=== PATIENT | male | born 1970 | race Caucasian/White ===

== ENCOUNTER 2017-03-27 10:13 | Emergency (ER) | payer OTHER, BC ==
--- NOTE | 2017-03-27 10:32 | EDM.PDOC ---
ED HPI GENERAL MEDICAL PROBLEM - General Chief Complaint: Upper Extremity Injury/Pain Stated Complaint: BACK PAIN Time Seen by Provider: 03/27/17 10:17 Source of Information: Reports: Patient History Limitations: Reports: No Limitations - History of Present Illness INITIAL COMMENTS - FREE TEXT/NARRATIVE: HISTORY AND PHYSICAL: History of present illness: Patient is a 46-year-old male who presents to the emergency room today with complaints of right posterior rib pain. 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 Patient reports that it is painful with movement, coughing, deep breathing and it radiates from the posterior mid chest wall to the anterior axilla area. Denies hitting his head or any loss of consciousness. Denies any hemoptysis, chest pain, short of breath , fever or chills. Denies any previous injury to the chest wall. Patient denies any other health problems or concerns today. Review of systems: As per history of present illness and below otherwise all systems reviewed and negative. Past medical history: As per history of present illness and as reviewed below otherwise noncontributory. Surgical history: As per history of present illness and as reviewed below otherwise noncontributory. Social history: No reported history of drug or alcohol abuse. Family history: As per history of present illness and as reviewed below otherwise noncontributory. Physical exam: Gen.: Nontoxic-appearing 46-year-old male. Able to speak in full sentences without shortness of breath. Alert and oriented HEENT: Atraumatic, normocephalic, pupils reactive, negative for conjunctival pallor or scleral icterus, mucous membranes moist, throat clear, neck supple, nontender, trachea midline. C-spine and back were palpated with no tenderness, crepitus, step-offs or obvious deformities. Lungs: Clear to auscultation, breath sounds equal bilaterally, tenderness to the right posterior chest wall. Heart: S1S2, regular rate and rhythm Abdomen: Soft, obese, nondistended, nontender. Negative for masses. Negative for costovertebral tenderness. Pelvis: Stable nontender. Genitourinary: Deferred. Rectal: Deferred. Extremities: Atraumatic, moves all per self, negative for cords or calf pain. Neurovascular unremarkable. Neuro: Awake, alert, oriented. Cranial nerves II through XII unremarkable. Cerebellum unremarkable. Motor and sensory unremarkable throughout. Exam nonfocal. Diagnostics: Chest x-ray Therapeutics: Toradol IM Impression: Contusion Plan: 1. May take your Cataflam 1 tab 3 times a day as needed for pain. Disp #30. Please do not take any additional NSAIDs such as ibuprofen or Aleve while taking this medication. The Flexeril as a muscle relaxer you may take this at night or while at home (not needing to be functioning at work or driving). Disp # 10. Ice to the area for the next 24 hours. He may then apply heat for pain management. 2. Follow-up with your primary care provider in the next 1-2 days. Return to the ED as needed as discussed Definitive disposition and diagnosis as appropriate pending reevaluation and review of above. Onset Date: 03/26/17 Duration: Day(s): Location: Reports: Chest Quality: Reports: Sharp Improves with: Reports: None Worsens with: Reports: Movement Associated Symptoms: Reports: No Other Symptoms right rib area Pain Score (Numeric/FACES): 8 - Related Data Allergies Allergy/AdvReac Type Severity Reaction Status Date / Time adhesive Allergy Rash Verified 03/27/17 10:23 Latex, Natural Rubber Allergy Rash Verified 03/27/17 10:23 penicillin Allergy Rash Verified 03/27/17 10:23 Home Meds: Home Meds Fluticasone Propionate [Flonase Allergy Relief] 1 spray NASBOTH ASDIRECTED 03/27 [History] Past Medical History - Past Health History Medical/Surgical History: Denies Medical/Surgical History Social & Family History - Tobacco Use Smoking Status *Q: Never Smoker - Recreational Drug Use Recreational Drug Use: No Review of Systems - Review of Systems Review Of Systems: ROS reveals no pertinent complaints other than HPI. ED EXAM, GENERAL - Physical Exam Exam: See Below (See dictation) Course - Vital Signs Last Recorded V/S: Last Vital Signs Temp 36.2 C 03/27/17 10:25 Pulse 78 03/27/17 10:25 Resp 18 03/27/17 10:25 BP 116/73 03/27/17 10:25 Pulse Ox 95 03/27/17 10:25 - Orders/Labs/Meds Orders: Active Orders 24 hr Category Date Time Status Chest 2V [CR] Stat Exams 03/27/17 10:33 Taken Meds: Medications Discontinued Medications Generic Name Dose Route Start Last Admin Trade Name Wu PRN Reason Stop Dose Admin Ketorolac Tromethamine 60 mg 03/27/17 10:33 03/27/17 10:37 Toradol IM 03/27/17 10:34 60 mg ONETIME ONE Administration Departure - Departure Time of Disposition: 11:11 Disposition: Home, Self-Care 01 Condition: Good Clinical Impression: Rib contusion Qualifiers: Encounter type: initial encounter Laterality: right Qualified Code(s): S20.211A - Contusion of right front wall of thorax, initial encounter - Discharge Information Referrals: PCP,None [Primary Care Provider] - Forms: ED Department Discharge Additional Instructions: My general discharge The following information is given to patients seen in the emergency department who are being discharged to home. This information is to outline your options for follow-up care. We provide all patients seen in our emergency department with a follow-up referral. The need for follow-up, as well as the timing and circumstances, are variable depending upon the specifics of your emergency department visit. If you don't have a primary care physician on staff, we will provide you with a referral. We always advise you to contact your personal physician following an emergency department visit to inform them of the circumstance of the visit and for follow-up with them and/or the need for any referrals to a consulting specialist. The emergency department will also refer you to a specialist when appropriate. This referral assures that you have the opportunity for follow-up care with a specialist. All of these measure are taken in an effort to provide you with optimal care, which includes your follow-up. Under all circumstances we always encourage you to contact your private physician who remains a resource for coordinating your care. When calling for follow-up care, please make the office aware that this follow-up is from your recent emergency room visit. If for any reason you are refused follow-up, please contact the [facility] Emergency Department at and asked to speak to the emergency department charge nurse. [facility] [address] [place] [phone] 1. May take your Cataflam 1 tab 3 times a day as needed for pain. Disp #30. Please do not take any additional NSAIDs such as ibuprofen or Aleve while taking this medication. You may take Tylenol for breakthrough pain. The Flexeril as a muscle relaxer you may take this at night or while at home (when you're not needing to be functioning at work or driving). Disp # 10. Ice to the area for the next 24 hours. He may then apply heat for pain management. 2. Follow-up with your primary care provider in the next 1-2 days. Return to the ED as needed as discussed - My Orders Last 24 Hours: My Active Orders 03/27/17 10:33 Chest 2V [CR] Stat - Assessment/Plan Last 24 Hours: My Active Orders 03/27/17 10:33 Chest 2V [CR] Stat
[2017-03-27] MEDS ORDERED: Ketorolac 60 MG/2 ML SDV IM ONE (10:33)
[2017-03-27 11:25] VITALS: BP 119/74
--- NOTE | 2017-03-29 17:22 | CR ---
EXAM DATE: 03/27/17 PATIENT'S AGE: 46 Patient: TAM ZAMBRANO Facility: [place], [place] Site . Site : 1970 Study: XRay Chest [id number]/23/2017 10:52:44 AM Ordering Physician: Doctor Joya Final Report: INDICATION: Hit last night playing football and now having pain in right ribs. Technique: PA and lateral chest x-ray. Comparison: Chest x-ray 03/22/2009. Findings: Decreased height of a few thoracic vertebral bodies likely chronic. Heart size normal. Lungs clear without infiltrate. No obvious rib fractures. If suspicion for rib fracture is moderate to high, consider dedicated rib views with markers over the site of pain to the allow for more sensitivity for evaluation of rib abnormality/fracture. Remainder negative. Dictated by Kristopher Choudhury MD @ Mar 27 2017 10:56AM (Electronic Signature) Report Signed by Proxy. YESSY
== END 2017-03-27 11:24 | disposition home or self-care (01) ==
LOC: MW.ED 10:13
DX: S20.211A Contusion of right front wall of thorax, initial encounter (principal); Z88.0 Allergy status to penicillin; Z91.040 Latex allergy status; W51.XXXA Accidental striking against or bumped into by another person, initial encounter; Y93.61 Activity, american tackle football
CPT/HCPCS: 71020; 96372; 99283; J1885

== ENCOUNTER 2019-02-18 15:11 | Emergency (ER) | payer BC, OTHER ==
[2019-02-18] MEDS ORDERED: methylPREDNISolone Sodium Succinate 125 MG/2 ML SDV IV ONE (15:45)
--- NOTE | 2019-02-18 15:46 | EDM.PDOC ---
ED HPI GENERAL MEDICAL PROBLEM - General Chief Complaint: Skin Complaint Stated Complaint: BUG BITE Time Seen by Provider: 02/18/19 15:42 Source of Information: Reports: Patient History Limitations: Reports: No Limitations - History of Present Illness INITIAL COMMENTS - FREE TEXT/NARRATIVE: HISTORY AND PHYSICAL: History of present illness: Patient is a 48-year-old male presents to the ED with complaint possible bug bite. Patient states he thinks he was bit by a wasp yesterday about 24 hours ago. He states that over night he developed swelling in the left side of his neck that has progressively gotten worse and spreading to the front of his neck. He denies any difficulty breathing or swallowing, denies fevers or chills. Review of systems: As per history of present illness and below otherwise all systems reviewed and negative. Past medical history: As per history of present illness and as reviewed below otherwise noncontributory. Surgical history: As per history of present illness and as reviewed below otherwise noncontributory. Social history: No reported history of drug or alcohol abuse. Family history: As per history of present illness and as reviewed below otherwise noncontributory. Physical exam: General: Patient sitting comfortably in no acute distress and nontoxic appearing HEENT: There is a moderate amount of swelling to the left and anterior neck with erythema and warmth. Atraumatic, normocephalic, pupils reactive, negative for conjunctival pallor or scleral icterus, mucous membranes moist, throat clear , neck supple, nontender, trachea midline. No meningeal signs. Lungs: Clear to auscultation, breath sounds equal bilaterally, chest nontender. Heart: S1S2, regular, negative for clicks, rubs, or overt murmur. Abdomen: Soft, nondistended, nontender. Negative for masses or hepatosplenomegaly. Negative for costovertebral tenderness. No rigidity, rebound , guarding. Pelvis: Stable nontender. Genitourinary: Deferred. Rectal: Deferred. Extremities: Atraumatic, negative for cords or calf pain. Neurovascular unremarkable. Neuro: Awake, alert, oriented. Cranial nerves II through XII unremarkable. Cerebellum unremarkable. Motor and sensory unremarkable throughout. Exam nonfocal. Notes: Diagnostics: CBC, CMP, lactate, CT soft tissue neck contrast Therapeutics: Solumedrol 125mg IV 1g Rocephin IV Prescriptions: Keflex Impression: Cellulitis, local allergic reaction Plan: Take antibiotic as instructed. Take Benadryl every 6 hours until symptoms resolve. Follow up with primary care provider Return to ED as needed as discussed Definitive disposition and diagnosis as appropriate pending reevaluation and review of above. Left Neck Pain Score (Numeric/FACES): 4 - Related Data Allergies Allergy/AdvReac Type Severity Reaction Status Date / Time adhesive Allergy Rash Verified 02/18/19 15:36 Latex, Natural Rubber Allergy Rash Verified 02/18/19 15:36 penicillin Allergy Rash Verified 02/18/19 15:36 Home Meds: Home Meds Cephalexin [Keflex] 500 mg PO TID 10 Days #30 capsule 02/18/19 [Rx] Fexofenadine [Simona] 180 mg PO DAILY 02/18/19 [History] Non-Formulary Medication [NF Drug] 1 each INH ASDIRECTED 02/18/19 [History] Non-Formulary Medication [NF Drug] 1 each PO DAILY 02/18/19 [History] Past Medical History - Past Health History Medical/Surgical History: Denies Medical/Surgical History HEENT History: Reports: None Cardiovascular History: Reports: None Respiratory History: Reports: Asthma Gastrointestinal History: Reports: None Genitourinary History: Reports: None Musculoskeletal History: Reports: None Neurological History: Reports: None Psychiatric History: Reports: None Endocrine/Metabolic History: Reports: None Hematologic History: Reports: None Immunologic History: Reports: None Oncologic (Cancer) History: Reports: None Dermatologic History: Reports: None - Infectious Disease History Infectious Disease History: Reports: None - Past Surgical History GI Surgical History: Reports: Appendectomy Social & Family History - Family History Family Medical History: Noncontributory - Caffeine Use Caffeine Use: Reports: Soda ED ROS GENERAL - Review of Systems Review Of Systems: ROS reveals no pertinent complaints other than HPI. ED EXAM, SKIN/RASH Exam: See Below (see dictation) Course - Vital Signs Last Recorded V/S: Last Vital Signs Temp 96.0 F 02/18/19 18:14 Pulse 66 02/18/19 18:14 Resp 17 02/18/19 18:14 BP 140/69 02/18/19 18:14 Pulse Ox 96 02/18/19 18:14 - Orders/Labs/Meds Labs: Laboratory Tests 02/18/19 02/18/19 02/18/19 Range/Units 16:00 16:00 16:00 WBC 8.12 (4.0-11.0) K/uL RBC 5.21 (4.50-5.90) M/uL Hgb 15.3 (13.0-17.0) g/dL Hct 44.7 (38.0-50.0) % MCV 85.8 (80.0-98.0) fL MCH 29.4 (27.0-32.0) pg MCHC 34.2 (31.0-37.0) g/dL RDW Std Deviation 42.1 (28.0-62.0) fl RDW Coeff of Pelon 14 (11.0-15.0) % Plt Count 170 (150-400) K/uL MPV 10.90 (7.40-12.00) fL Neut % (Auto) 60.8 (48.0-80.0) % Lymph % (Auto) 24.6 (16.0-40.0) % [place] % (Auto) 11.5 (0.0-15.0) % Eos % (Auto) 2.6 (0.0-7.0) % Baso % (Auto) 0.5 (0.0-1.5) % Neut # (Auto) 4.9 (1.4-5.7) K/uL Lymph # (Auto) 2.0 (0.6-2.4) K/uL [place] # (Auto) 0.9 H (0.0-0.8) K/uL Eos # (Auto) 0.2 (0.0-0.7) K/uL Baso # (Auto) 0.0 (0.0-0.1) K/uL Nucleated RBC % 0.0 /100WBC Nucleated RBCs # 0 K/uL Lactate 1.0 (0.20-2.00) mmol/L Sodium 142 (136-148) mmol/L Potassium 4.0 (3.5-5.1) mmol/L Chloride 105 (98-107) mmol/L Carbon Dioxide 27.8 (21.0-32.0) mmol/L BUN 15 (7.0-18.0) mg/dL Creatinine 0.8 (0.8-1.3) mg/dL Est Cr Clr Drug Dosing 118.96 mL/min Estimated GFR (MDRD) > 60.0 ml/min Glucose 87 (74-106) mg/dL Calcium 9.4 (8.5-10.1) mg/dL Total Bilirubin 0.2 (0.2-1.0) mg/dL AST 24 (15-37) IU/L ALT 50 (14-63) IU/L Alkaline Phosphatase 77 (46-116) U/L Total Protein 7.7 (6.4-8.2) g/dL Albumin 3.6 (3.4-5.0) g/dL Globulin 4.1 H (2.6-4.0) g/dL Albumin/Globulin Ratio 0.9 (0.9-1.6) Meds: Medications Discontinued Medications Generic Name Dose Route Start Last Admin Trade Name Freq PRN Reason Stop Dose Admin Ceftriaxone Sodium/Dextrose 1 50 mls @ 100 mls/hr 02/18/19 17:29 02/18/19 17: 39 gm/ Premix IV 02/18/19 17:58 100 mls/hr ONETIME ONE Administration Iopamidol 80 ml 02/18/19 16:56 02/18/19 16:57 Isovue Multipack-370 (76%) IVPUSH 02/18/19 16:57 80 ml ONETIME ONE Administration Methylprednisolone Sodium Succinate 125 mg 02/18/19 15:45 02/18/19 16:15 Solu-Medrol IV 02/18/19 15:46 125 mg ONETIME ONE Administration Departure - Departure Time of Disposition: 22:38 Disposition: Home, Self-Care 01 Condition: Good Clinical Impression: Cellulitis, Allergic reaction - Discharge Information Prescriptions: Cephalexin [Keflex] 500 mg PO TID 10 Days #30 capsule Instructions: Cellulitis, Adult, [id number] Referrals: PCP,Unknown [Primary Care Provider] - Forms: ED Department Discharge Additional Instructions: The following information is given to patients seen in the emergency department who are being discharged to home. This information is to outline your options for follow-up care. We provide all patients seen in our emergency department with a follow-up referral. The need for follow-up, as well as the timing and circumstances, are variable depending upon the specifics of your emergency department visit. If you don't have a primary care physician on staff, we will provide you with a referral. We always advise you to contact your personal physician following an emergency department visit to inform them of the circumstance of the visit and for follow-up with them and/or the need for any referrals to a consulting specialist. The emergency department will also refer you to a specialist when appropriate. This referral assures that you have the opportunity for follow-up care with a specialist. All of these measure are taken in an effort to provide you with optimal care, which includes your follow-up. Under all circumstances we always encourage you to contact your private physician who remains a resource for coordinating your care. When calling for follow-up care, please make the office aware that this follow-up is from your recent emergency room visit. If for any reason you are refused follow-up, please contact the [facility] Emergency Department at and asked to speak to the emergency department charge nurse. [facility] [address] [place] [id number] [facility] [address] [place] [id number] Take antibiotic as instructed. Take Benadryl every 6 hours until symptoms resolve. Follow up with primary care provider Return to ED as needed as discussed
[2019-02-18 16:33] LABS: CHLORIDE,CL 105 mmol/L (98-107); SODIUM,NA 142 mmol/L (136-148)
[2019-02-18] MEDS ORDERED: Iopamidol 755 MG/ML 200 ML Multipack Bottle IVPUSH ONE (16:56)
--- NOTE | 2019-02-18 17:26 | CT ---
INDICATION: Bump (marked by BB) on left side of neck since yesterday. Pt states he woke up this morning and the area was swollen Indication: Neck swelling. Region marked with BB by performing technologist. Technique: CT of the neck. 80 cc of Isovue 370 IV. Coronal/sagittal reconstruction images. Comparison: None. Findings: There is no abnormal contrast enhancement within the posterior fossa are included supratentorial brain. Landmarks within the nasopharynx are preserved. Specifically, the fossa of Rosenmuller and torus tubarius are symmetric. Aryepiglottic folds and piriform sinuses are normal. No masses identified in the pharyngeal mucosal space. There is thickening of the left platysma muscle, with fat stranding present at the area of interest. This is seen best on images 50 through 58 of series 201. There is no drainable fluid collection, abscess, or mass. The findings suggest cellulitis. The parotid space, carotid space, continuous process machine operator space, paravertebral space common infratemporal fossa are intact. No displacement of the parapharyngeal fat. Calcifications in the palatine tonsils. Thyroid gland is symmetric. The superior mediastinum is within normal limits. Lung apices are clear. The bone windows demonstrate no lytic or blastic bone lesions. Spinal canal and neural foramina are patent. Mastoid air cells of both temporal bones are clear. Paranasal sinuses are normal or visualized. On sagittal reconstruction images, degenerative changes of the atlantoaxial joint. Clivus is intact. Craniocervical junction is normal. Impression: 1. The palpable abnormality corresponds to a region of fat stranding, with associated thickening of the left platysma muscle. 2. No drainable fluid collection or mass. Findings are compatible with cellulitis. 3. No adenopathy by size criteria in the suprahyoid/infrahyoid neck. 4. No displacement of the parapharyngeal fat. No mass identified in the pharyngeal mucosal space. Dictated by Los Hernández MD @ 02/18/2019 5:24:25 PM Please note that all CT scans at this facility use dose modulation, iterative reconstruction, and/or weight-based dosing when appropriate to reduce radiation dose to as low as reasonably achievable. Dictated by: Los Hernández MD @ 02/18/2019 17:24:42 (Electronically Signed)
[2019-02-18] MEDS ORDERED: cefTRIAXone 1 GM in Premix Bag 1 BAG IV ONE (17:29)
[2019-02-18 18:18] VITALS: BP 140/69
== END 2019-02-18 18:17 | disposition home or self-care (01) ==
LOC: MW.ED 15:11
DX: T78.40XA Allergy, unspecified, initial encounter (principal); L03.221 Cellulitis of neck; Z88.0 Allergy status to penicillin; Z91.040 Latex allergy status; Z91.09 Other allergy status, other than to drugs and biological substances; Z90.49 Acquired absence of other specified parts of digestive tract
CPT/HCPCS: 36415; 70491; 80053; 83605; 85025; 96365; 96375; 99283; J0696; J2930; Q9967

== ENCOUNTER 2020-03-13 06:52 | Observation (INO) | payer OTHER, BC ==
[~2020-03-13 06:52] MED LIST: Lactated Ringers 1,000 ML IV SCH
[2020-03-13] MEDS ORDERED: fentaNYL 100 MCG/2 ML SDV ONE (07:11)
[2020-03-13] MEDS ORDERED: Lidocaine 2% 5 ML SDV ONE (07:11)
[2020-03-13] MEDS ORDERED: Propofol 200 MG/20 ML SDV ONE ×2 (07:11→08:04)
--- NOTE | 2020-03-13 07:26 | PCM.PREANE ---
Preanesthetic Assessment - Anesthesia/Transfusion/Family Hx Anesthesia History: Prior Anesthesia Without Reaction Family History of Anesthesia Reaction: No Transfusion History: No Prior Transfusion(s) Intubation History: Unknown - Review of Systems General: No Symptoms Pulmonary: No Symptoms Cardiovascular: No Symptoms Gastrointestinal: Constipation, Other (change in bowel habits) Neurological: No Symptoms Other: Reports: None - Physical Assessment Height: 5 ft 11 in Weight: 166.922 kg ASA Class: 3 Mental Status: Alert & Oriented x3 Airway Class: Mallampati = 2 Dentition: Reports: Normal Dentition Thyro-Mental Finger Breadths: 3 Mouth Opening Finger Breadths: 3 ROM/Head Extension: Full Lungs: Clear to Auscultation, Normal Respiratory Effort Cardiovascular: Regular Rate, Regular Rhythm - Allergies Allergies/Adverse Reactions: Allergies Allergy/AdvReac Type Severity Reaction Status Date / Time adhesive Allergy Rash Verified 03/07/20 11:06 Latex, Natural Rubber Allergy Rash Verified 03/07/20 11:06 penicillin Allergy Rash Verified 03/07/20 11:06 - Blood Blood Available: No - Anesthesia Plan Pre-Op Medication Ordered: None - Acknowledgements Anesthesia Type Planned: MAC Pt an Appropriate Candidate for the Planned Anesthesia: Yes Alternatives and Risks of Anesthesia Discussed w Pt/Guardian: Yes Pt/Guardian Understands and Agrees with Anesthesia Plan: Yes PreAnesthesia Questionnaire - Past Health History Medical/Surgical History: Denies Medical/Surgical History HEENT History: Reports: Other (See Below) Other HEENT History: wears glasses Cardiovascular History: Reports: High Cholesterol (under control with medications) Respiratory History: Reports: Asthma, Sleep Apnea Other Respiratory History: does not use CPAP (unable to tolerate mask), rarely uses rescue inhaler for asthma Gastrointestinal History: Reports: None Genitourinary History: Reports: None Musculoskeletal History: Reports: Fracture Other Musculoskeletal History: hx of fx femur and hand Neurological History: Reports: Concussion Psychiatric History: Reports: None Endocrine/Metabolic History: Reports: Obesity/BMI 30+ (BMI 51.3) Hematologic History: Reports: None Immunologic History: Reports: None Oncologic (Cancer) History: Reports: None Dermatologic History: Reports: Other (See Below) Other Dermatologic History: current "heat" rash on leg - Infectious Disease History Infectious Disease History: Reports: None - Past Surgical History Head Surgeries/Procedures: Reports: None GI Surgical History: Reports: Appendectomy, EGD - SUBSTANCE USE Smoking Status *Q: Current Some Day Smoker Tobacco Use Within Last Twelve Months: Snuff/Dip Recreational Drug Use History: No - HOME MEDS Home Medications: Home Meds Albuterol [Proventil HFA] 1 puff INH ASDIRECTED PRN 03/07/20 [History] Cholecalciferol (Vitamin D3) [Vitamin D3] 2,000 unit PO QAM 03/07/20 [History] Fluticasone Propionate [Flonase Allergy Relief] 2 spray NASBOTH DAILY 03/07/20 [History] Glucosamine [Glucosamine Sulfate] 500 mg PO DAILY 03/07/20 [History] Mometasone Furoate [Asmanex] 1 puff INH DAILY 03/07/20 [History] Montelukast Sodium 10 mg PO DAILY 03/07/20 [History] [place]-3 Fatty Acids/Fish Oil [Fish Oil 1,000 mg Capsule] 1,000 mg PO QAM 03/07/20 [History] Sildenafil [Viagra] 100 mg PO ASDIRECTED PRN 03/07/20 [History] atorvaSTATin Calcium [Atorvastatin Calcium] 10 mg PO BEDTIME 03/07/20 [History] - CURRENT (IN HOUSE) MEDS Current Meds: Current Medications Lactated Ringer's (Ringers, Lactated) 1,000 mls @ 125 mls/hr IV ASDIRECTED MICAH Discontinued Medications Fentanyl (Sublimaze) Confirm Administered Dose 100 mcg .ROUTE .STK-MED ONE Stop: 03/13/20 07:12 Lidocaine (Xylocaine-Mpf 2%) Confirm Administered Dose 5 ml .ROUTE .STK-MED ONE Stop: 03/13/20 07:12 Propofol (Diprivan 20 Ml) Confirm Administered Dose 400 mg .ROUTE .STK-MED ONE Stop: 03/13/20 07:12
[2020-03-13] MEDS ORDERED: Midazolam 1 MG/ML 2 ML SDV ONE (07:33)
[2020-03-13] MEDS ORDERED: 50% Dextrose in Water 50 ML Syringe IVPUSH PRN (08:35)
[2020-03-13] MEDS ORDERED: Atropine 0.1 MG/ML 10 ML Syringe IVPUSH PRN ×2 (08:35)
[2020-03-13] MEDS ORDERED: Naloxone 0.4 MG/ML Syringe IVPUSH PRN (08:35)
[2020-03-13] MEDS ORDERED: Albuterol 0.083% 2.5 MG/3 ML Neb Soln NEB PRN (08:35)
[2020-03-13] MEDS ORDERED: EPINEPHrine 1:10,000 1 MG/10 ML Syringe IVPUSH PRN (08:35)
--- NOTE | 2020-03-13 08:39 | PCM.OPNOTE ---
- General Post-Op/Procedure Note Date of Surgery/Procedure: 03/13/20 Operative Procedure(s): egd w bx. colonoscope w snare polypectomy Findings: see [id number] Pre Op Diagnosis: bloating and change in bowel habits Post-Op Diagnosis: Same Anesthesia Technique: Moderate Sedation Primary Surgeon: Oneil Lancaster Pathology: egd bx snare polyp at distance 95 when scope went in, 5mm sessile polyps X 2 Complications: None Condition: Good
--- NOTE | 2020-03-13 08:39 | PCM.SN.2 ---
- Free Text/Narrative Note: Multiple episodes of desaturation intra-op due to hypoventilation and full airway obstruction. Pt currently on BiPAP 15/01 at FiO2 50% with SpO2 94%. Spoke with Dr Lancaster and Dr Montelongo; pt will be admitted for observation and continuous pulse oximetry/telemetry for severe JO-ANN.
--- NOTE | 2020-03-13 08:42 | PCM.SN.2 ---
- Free Text/Narrative Note: because of obesity, sleep apnea, pt postop adm for observation
--- NOTE | 2020-03-13 08:55 | PCM.POSTAN ---
POST ANESTHESIA ASSESSMENT - MENTAL STATUS Mental Status: Alert, Oriented - VITAL SIGNS Vital Signs: Last Vital Signs Temp 36.3 C 03/13/20 07:36 Pulse 69 03/13/20 08:40 Resp 16 03/13/20 08:40 BP 116/61 03/13/20 08:40 Pulse Ox 97 03/13/20 08:40 - RESPIRATORY Respiratory Status: Respiratory Rate WNL, Airway Patent, O2 Saturation Stable - CARDIOVASCULAR CV Status: Pulse Rate WNL, Blood Pressure Stable - GASTROINTESTINAL GI Status: No Symptoms - PAIN Pain Score: 0 - POST OP HYDRATION Hydration Status: Adequate & Stable - OBSERVATIONS Free Text/Narrative:: No anesthesia problems
--- NOTE | 2020-03-13 11:29 | OR ---
SURGEON: Oneil Lancaster MD DATE OF PROCEDURE: 03/13/2020 PREOPERATIVE DIAGNOSES: Change in bowel habit and bloating. PROCEDURES PERFORMED: 1. Esophagogastroduodenoscopy with biopsy. 2. Colonoscopy with snare polypectomy. DESCRIPTION OF PROCEDURE: EGD: The patient was taken to the endoscopy room, and with the LUNCH TRUCK DRIVER, Diprivan was administered. A well-lubricated EGD scope was gently inserted through the oropharynx, down the esophagus, passing through the gastroesophageal junction, into the stomach. The mucosa was examined upon the passage. Any etiology will be noted. Once in the stomach, we continued to advance to the distal antrum, passed through the pylorus into the second portion of the duodenum. Again, the mucosa was examined for any abnormality and etiology. The scope was then retrieved back to the stomach and then retroflexed to look at the fundus of the stomach. If a biopsy was indicated, we will biopsy the antrum, body, and gastroesophageal junction. The air will be sucked out while the scope is retrieved to reduce the patient's discomfort. The patient tolerated the procedure well. There were no intraoperative complications. Dr. Lancaster was present through the whole procedure. Prior to surgery, a time-out had been called, the patient identified, procedure identified and antibiotic administered. The patient was taken to the endoscopy room. A time out was called, patient identified, and procedure identified. Diprivan was then administrated. Patient went from awake to sleep, hearing doctor talking or door closing is normal. Perineum inspection and digital examination were then performed. A well- lubricated colonoscope was gently inserted through the rectum, advanced past the rectosigmoid junction, the descending colon, splenic flexure, transverse colon, hepatic flexure, ascending colon, arrived to the cecum. Cecum was identified as dictated in the finding. Then the scope was carefully withdrawn while attention was paid to the mucosal surface for any abnormality. Air will be sucked out during the scope withdrawal. At the rectum, retroflexed to examine any rectal diseases, fistula or hemorrhoids. During mucosal examination, abnormality or polyp encountered. Using snare equipment, the abnormality or the polyp was then snared off using electrocautery. The patient tolerated procedure well. There were no intraoperative complications, and Dr. Lancaster was present throughout the whole procedure. FINDINGS: EGD findings: 1. The patient is easily sedated with LUNCH TRUCK DRIVER and Diprivan, the patient is soundly snoring. 2. Oropharynx and proximal esophagus are free of disease and proximal esophagus has no stricture, inflammation, or ulceration. Distal esophagus at GE junction at 40 shows mild salmon-colored change, suggests some acid reflux. Stomach rugae are normal in appearance, and antrum looks fine. Minimal inflammation, and duodenum is grossly normal. Retroflexed look at the fundus of stomach, the patient may have a small hiatal hernia. The patient was confused and does not have too much time to look at the situation. From the picture and from the observation, the patient may have a small hiatal hernia. Biopsy done at antrum and sucked out the gas while the scope pulling out. Throughout the whole study, there is no blood, ulcer, food particle, or bile observed. Colonoscopy findings: 1. The patient is easily sedated with LUNCH TRUCK DRIVER and Diprivan, the patient is soundly snoring. 2. Bowel prep is excellent and very little liquid stool and no semi-formed stool. 3. Colon rather straightforward. Cecum indicated by ileocecal fold, one-to- one indentation. ScopeGuide is pointing south. Appendiceal orifice and light emittance are not observed because of body habitus. The cecum can only be seen at distance because of reaching to the end of the length of the scope. The patient had two small polyps at distance 90 when scope go in and in fact it was 60 when scope coming out and 5 mm and 4 mm, both snared and sent for pathology. The patient does not have diverticulosis, inflammation, stricture, ulceration, AV malformation, bleeding, ulcer, none of those. Random biopsy at right colon because the patient has abdominal pain. They looked grossly normal, but did get a random biopsy. The patient has mild external hemorrhoids, no internal hemorrhoid. The patient would benefit from repeat colonoscopy in 10 years from today or if clinically indicated otherwise or if the biopsy and the polyp indicated otherwise. Add: sleep apnea and morbid obesity, pt is admitted for observation postop ELLIE / REGINA /[id number]
[2020-03-13 14:55] VITALS: BP 133/73; PULSE 72
--- NOTE | 2020-03-13 15:24 | PCM48HPAN ---
Post Anesthesia Note - EVALUATION WITHIN 48HRS OF ANESTHETIC Vital Signs in Normal Range: Yes Patient Participated in Evaluation: Yes Respiratory Function Stable: Yes Airway Patent: Yes Cardiovascular Function Stable: Yes Hydration Status Stable: Yes Pain Control Satisfactory: Yes Nausea and Vomiting Control Satisfactory: Yes Mental Status Recovered: Yes Vital Signs: Last Vital Signs Temp 36.1 C 03/13/20 09:21 Pulse 72 03/13/20 09:21 Resp 20 03/13/20 09:21 BP 133/73 03/13/20 09:21 Pulse Ox 97 03/13/20 09:21 - COMMENTS/OBSERVATIONS Free Text/Narrative:: No anesthesia problems
== END 2020-03-13 17:40 | disposition home or self-care (01) ==
LOC: MW.SDS 06:52 → MW.ICU 08:47
PROVIDERS: ADMIT Surgery; ATTEND Surgery
DX: D12.6 Benign neoplasm of colon, unspecified (principal); K64.4 Residual hemorrhoidal skin tags; R14.0 Abdominal distension (gaseous); J45.909 Unspecified asthma, uncomplicated; Z88.8 Allergy status to other drugs, medicaments and biological substances; Z88.0 Allergy status to penicillin; Z91.048 Other nonmedicinal substance allergy status; Z91.040 Latex allergy status; Z79.899 Other long term (current) drug therapy; Z90.49 Acquired absence of other specified parts of digestive tract; F17.200 Nicotine dependence, unspecified, uncomplicated; Z98.890 Other specified postprocedural states; E66.9 Obesity, unspecified; Z68.43 Body mass index [BMI] 50.0-59.9, adult
CPT/HCPCS: 43239; 45380; 45385; 94660; G0378; J2001; J2250; J2704; J3010; J7120

== ENCOUNTER 2022-03-12 13:27 | Emergency (ER) | payer BC ==
[2022-03-12] MEDS ORDERED: HYDROmorphone 1 MG/ML Syringe IVPUSH ONE (13:53)
[2022-03-12] MEDS ORDERED: Ondansetron 4 MG/2 ML SDV IVPUSH ONE (13:53)
[2022-03-12] MEDS ORDERED: Sodium Chloride 0.9% 1,000 ML IV ONE (13:53)
[2022-03-12 14:48] VITALS: BP 118/64; PULSE 79
[2022-03-12 14:59] LABS: BLOOD UREA NITROGEN,BUN 10 mg/dL (7.0-18.0); CHLORIDE,CL 100 mmol/L (98-107); ESTIMATED GFR 106 mL/min (>60); GLUCOSE RANDOM 105 mg/dL (74-106); LIPASE 50 U/L (73-393); POTASSIUM,K 4.1 mmol/L (3.5-5.1); SODIUM,NA 134 mmol/L (136-148)
[2022-03-12] MEDS ORDERED: Iopamidol 755 MG/ML 500 ML Multipack Bottle IVPUSH STA (16:50)
== END 2022-03-12 17:49 | disposition home or self-care (01) ==
LOC: MW.ED 13:27
DX: R10.11 Right upper quadrant pain (principal); E78.00 Pure hypercholesterolemia, unspecified; I10 Essential (primary) hypertension; E66.9 Obesity, unspecified; Z68.41 Body mass index [BMI] 40.0-44.9, adult; Z91.048 Other nonmedicinal substance allergy status; Z91.040 Latex allergy status; Z88.0 Allergy status to penicillin; Z79.899 Other long term (current) drug therapy; Z90.49 Acquired absence of other specified parts of digestive tract; Z20.822 Contact with and (suspected) exposure to COVID-19
CPT/HCPCS: 36415; 74177; 80053; 83690; 85025; 87635; 96361; 96374; 96375; 99284; J1170; J2405; J7030; Q9967; U0002

== ENCOUNTER 2022-03-13 10:30 | Emergency (ER) | payer BC, OTHER ==
[2022-03-13] MEDS ORDERED: Sodium Chloride 0.9% 10 ML Syringe FLUSH PRN (14:07)
[2022-03-13] MEDS ORDERED: Sodium Chloride 0.9% 2.5 ML Syringe FLUSH PRN (14:07)
[2022-03-13] MEDS ORDERED: HYDROmorphone 1 MG/ML Syringe IVPUSH ONE (14:29)
[2022-03-13] MEDS ORDERED: Ketorolac 30 MG/ML SDV IVPUSH ONE (14:29)
[2022-03-13 15:33] LABS: CARBON DIOXIDE,CO2 26.3 mmol/L (21.0-32.0); POTASSIUM,K 4.4 mmol/L (3.5-5.1)
[2022-03-13 16:40] VITALS: BP 134/75; PULSE 66
[2022-03-13] MEDS ORDERED: Iopamidol 755 Mg/ML 100 ML Bottle IVPUSH ONE (16:46)
== END 2022-03-13 18:49 | disposition home or self-care (01) ==
LOC: MW.ED 10:30
DX: K63.89 Other specified diseases of intestine (principal); R19.7 Diarrhea, unspecified; I10 Essential (primary) hypertension; E66.9 Obesity, unspecified; Z88.0 Allergy status to penicillin; Z91.040 Latex allergy status; Z91.048 Other nonmedicinal substance allergy status; E78.00 Pure hypercholesterolemia, unspecified; Z86.16 Personal history of COVID-19; Z68.43 Body mass index [BMI] 50.0-59.9, adult
CPT/HCPCS: 36415; 71045; 72191; 74175; 76705; 80053; 81001; 83605; 83690; 84484; 85025; 87045; 87046; 87324; 87328; 87329; 87449; 87899; 93005; 96374; 96375; 99284; J1170; J1885; J3490; Q9967

== ENCOUNTER 2023-08-25 11:18 | Day surgery (SDC) | payer OTHER, BC ==
[2023-08-25] MEDS ORDERED: propofoL 50 ML ONE ×2 (11:30→13:56)
[2023-08-25] MEDS: Lactated Ringers 1,000 ML IV SCH (11:43)
[2023-08-25 14:42] VITALS: BP 111/77; PULSE 52
== END 2023-08-25 15:00 | disposition home or self-care (01) ==
LOC: MW.SDS 11:18
PROVIDERS: ATTEND Surgery
DX: Z12.11 Encounter for screening for malignant neoplasm of colon (principal); D12.4 Benign neoplasm of descending colon; K51.40 Inflammatory polyps of colon without complications; J45.909 Unspecified asthma, uncomplicated; G47.30 Sleep apnea, unspecified; K21.9 Gastro-esophageal reflux disease without esophagitis; F17.210 Nicotine dependence, cigarettes, uncomplicated; E66.01 Morbid (severe) obesity due to excess calories; Z68.36 Body mass index [BMI] 36.0-36.9, adult; Z98.890 Other specified postprocedural states; Z86.010 Personal history of colon polyps; Z79.899 Other long term (current) drug therapy; Z79.51 Long term (current) use of inhaled steroids; Z91.040 Latex allergy status; Z88.1 Allergy status to other antibiotic agents; Z88.0 Allergy status to penicillin; Z91.048 Other nonmedicinal substance allergy status; Z88.6 Allergy status to analgesic agent
CPT/HCPCS: 45380; J2704; J7120; 00811; 88305